=== PATIENT | male | born 1985 | race Caucasian/White ===

== ENCOUNTER 2021-03-16 18:28 | Emergency (ER) | payer MEDICAID, SELFPAY ==
[2021-03-16 18:32] VITALS: BP 150/90; PULSE 75; O2SAT 100
--- NOTE | 2021-03-16 18:40 | ED_ITS ---
HPI - Overdose General Chief Complaint: ETOH/Substance Use Stated Complaint: drug use Time Seen by Provider: 03/16/21 18:38 History of Present Illness HPI Narrative: Patient history of heroin abuse was found in the alley unresponsive overdosed on heroin. Per patient he use only 2 bags of urine which she used yesterday also but this time became unconscious was given 8 mg of Narcan by EMS now alert oriented x3. Denies any other substance abuse. Does not want to go to detox and does not need any help Related Data Allergies Allergy/AdvReac Type Severity Reaction Status Date / Time No Known Allergies Allergy Unverified 02/01/20 15:45 Review of Systems Review of Systems: Yes all other systems are reviewed and are negative [facility] Social History Social History Advance Directives: No Advance Directives Information Provided: No Physical Exam Vital Signs: Vital Signs: Last Vital Signs Temp 97.5 F 03/16/21 18:53 Pulse 79 03/16/21 18:53 Resp 14 03/16/21 18:53 BP 139/92 H 03/16/21 18:53 Pulse Ox 99 03/16/21 18:53 Body Mass Index 22.3 Appearance: Alert. Oriented X3. No acute distress. Eyes: PERRLA, No Nystagmus ENT: Pharynx normal. Oral Mucosa moist Neck: Normal inspection. Neck supple. CVS: Normal heart rate and rhythm. Pulses normal. Respiratory: No respiratory distress. Equal air entry bilateral, no wheezing/rales/rhonchi Abdomen: Soft and nontender. Bowel sounds are present, no mass palpable, no CVA tenderness Skin: Skin warm and dry. Normal skin color. Normal skin turgor. Extremities: No lower extremity edema. No calf tenderness Neuro: Oriented X 3. No motor deficit. No sensory deficit.No cerebellar signs , cranial nerves II-XII intact Course Reevaluation(s) Reevaluation #1: Patient alert oriented x3 sitting 96% room at taking p.o. fluids refused to go to detox , discharge patient home Time: 19:32 Discharge Plan Discharge Clinical Impression: Accidental heroin overdose Qualifiers: Encounter type: initial encounter Qualified Code(s): T40.1X1A - Poisoning by heroin, accidental (unintentional), initial encounter Patient Disposition: Home, Self-Care Instructions: Opioid Safety (ED) Additional Instructions: Stop using heroin and follow with detox
[2021-03-16 18:53] VITALS: BP 139/92; PULSE 79; RESP 14; TEMP 36.4; O2SAT 99; BMI 22.3
--- NOTE | 2021-03-16 19:20 | MHC.RECOVSUP ---
? Reason for consult [facility] use concern: Heroin - Overdose - Support ? Intervention: <del>o</del> <del>ATS</del> <del>bed</del> <del>search</del> <del>started/completed/in</del> <del>process</del> <del>o</del> <del>MAT</del> <del>started</del> <del>or</del> <del>to</del> <del>be</del> <del>started</del> o Community resources provided o Harm reduction discussion ? Plan: <del>o</del> <del>Referral</del> <del>to</del> <del>[facility]</del> <del>o</del> <del>Bed</del> <del>search</del> <del>in</del> <del>progress</del> <del>to</del> <del>o</del> <del>Follow</del> <del>up</del> <del>tomorrow</del> <del>o</del> <del>Patient</del> <del>awaiting</del> <del>crisis</del> <del>evaluation</del> o Patient to follow up with H after discharge ? Additional information:Patient stated that he is ok, that he on MAT, and that he had a slip.. we talk harm reduction and patient was given resources.
--- NOTE | 2021-03-16 20:24 | HO.SUDE ---
LATE ENTRY: CARE team did not meet with pt to complete SUDE prior to being discharged from the ED. This parts data writer reviewed pt's chart and consulted with refinery operator light ends recovery who spoke with him briefly. Pt is on suboxone and has been doing well overall, but sometimes will slip up and use. He declined support and resources at this time. Per chart review- pt has a history of 4 substance-use related ER visits to this hospital since 2016. During two of these visits he was in protective custody.. He has a history of both IV and IN use of opiates and cocaine as well as heavy alcohol use. He has been in detox facilities and residential treatment programs, and has been on vivitrol, methadone, and suboxone in the past. There is no history of mental health diagnoses or treatment indicated in his chart.
== END 2021-03-16 19:37 | disposition home or self-care (01) ==
PROVIDERS: Emergency Provider Internal Medicine
DX: T40.1X1A Poisoning by heroin, accidental (unintentional), initial encounter (principal); Y92.9 Unspecified place or not applicable; F11.10 Opioid abuse, uncomplicated
CPT/HCPCS: 99283

== ENCOUNTER 2022-02-04 13:48 | Emergency (ER) | payer MEDICAID, SELFPAY ==
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
[2022-02-04 13:54] VITALS: BP 147/90; PULSE 94; RESP 16; TEMP 36.6; O2SAT 94; BMI 25.8
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
[2022-02-04] MEDS: Ondansetron ODT 4 MG TAB.RAPDIS TRANSLINGU (14:33)
[2022-02-04 14:34] VITALS: RESP 16
[2022-02-04] MEDS: Morphine Sulfate 4 MG/ML CARTRIDGE IM (14:34)
[2022-02-04 16:27] VITALS: RESP 16
[2022-02-04] MEDS: HYDROmorphone HCl 1 MG/ML SYRINGE IM (16:27)
[2022-02-04 16:40] LABS: MANUAL DIFF FLAG NO
[2022-02-04 16:42] LABS: Basophils Percent Auto 0.4 % (0-2); Eosinophils Absolute Auto 0.1 X10*3/uL (0.0-0.4); Eosinophils Percent Auto 1.3 % (0-4); Hematocrit 43.3 % (42.0-52.0); Hemoglobin 13.6 g/dl (14.0-18.0); Imm Gran Abs Auto 0.01 X10*3/uL (0.00-0.03); Imm Gran Pct Auto 0.1 % (0.0-0.4); Lymphocytes Absolute Auto 1.4 X10*3/uL (1.2-4.9); Lymphocytes Percent Auto 17.4 % (20-40); Mean Corpuscular HGB Conc 31.4 g/dl (31.0-36.0); Mean Corpuscular Hemoglobin 28.4 pg (27.0-33.0); Mean Corpuscular Volume 90.4 fL (80.0-98.0); Mean Platelet Volume 11.2 fL (9.4-12.4); Monocytes Absolute Auto 0.5 X10*3/uL (0.1-1.2); Monocytes Percent Auto 6.4 % (2-11); Neutrophils Absolute Auto 5.8 x10*3/uL (2.0-8.3); Neutrophils Percent Auto 74.4 % (45-73); Platelet Count 241 X10*3/uL (160-400); Red Blood Count 4.79 X10*6/uL (4.60-5.80); Red Cell Distribution Width 12.5 % (11.0-16.0); White Blood Count 7.8 X10*3/uL (4.8-10.8)
[2022-02-04 16:50] LABS: INTERNATIONAL NORM RATIO 1.2 (0.9-1.1); Prothrombin Time 13.9 SEC (10.0-13.1)
[2022-02-04] MEDS: Diphth,Pertus(ACell),Tet Adult 0.5 ML SYRINGE IM (16:50)
[2022-02-04] MEDS: 0.9 % Sodium Chloride 1,000 ML 999 ML IVCONT (16:51)
[2022-02-04] MEDS: Piperacillin Sodium/Tazobactam 3.375 GM in 0.9 % Sodium Chloride 50 ML IV (16:53)
[2022-02-04 17:01] LABS: Alanine Aminotransferase 30 U/L (0-40); Albumin Level 4.4 g/dL (3.5-5.0); Alkaline Phosphatase 140 U/L (39-117); Anion Gap 16 (12-20); Aspartate Amino Transferase 30 U/L (5-37); Bilirubin Total 0.4 mg/dL (0.0-1.0); Blood Urea Nitrogen 12 mg/dL (9-16); Calcium 9.5 mg/dL (8.4-10.2); Carbon Dioxide 28 mmol/L (22-29); Chloride 101 mmol/L (96-108); Creatinine Clr Calc Pharmacy 102.3; Estimated Glomerular Filt Rate > 60; Glucose Random 101 mg/dL (60-115); Potassium 3.6 mmol/L (3.3-5.1); Sodium 141 mmol/L (135-145); Total Protein 8.4 g/dL (6.5-8.0)
[2022-02-04 17:07] LABS: COVID-19 Test Negative (Negative); IDNOW Serial# 55D5AD1C
[2022-02-04 17:27] VITALS: BP 159/91; PULSE 61; RESP 18
[2022-02-04 17:30] VITALS: BP 159/91; PULSE 61; RESP 18; O2SAT 98
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
--- NOTE | 2022-02-04 18:05 | PC.NURSE ---
1730: ASSUMED CARE OF PATIENT PT AWAKE, ALERT AND ORIENTED X 3. SKIN WARM AND DRY RESP EVEN, EASY, UNLABORED. MANAGING SECRETIONS. IV ABX COMPLETED. PLAN IS FOR TRANSFER TO [facility]. PT AGREEABLE TO PLAN.
--- NOTE | 2022-02-04 18:38 | PC.NURSE ---
REPORT TO [facility]. [facility] HERE FOR TRANSPORT.
== END 2022-02-04 18:40 | disposition short-term general hospital (02) ==
PROVIDERS: Physician Assistant Medical; Emergency Provider Emergency Medicine; PCP Nurse Practitioner Family
DX: S02.652A Fracture of angle of left mandible, initial encounter for closed fracture (principal); S02.651A Fracture of angle of right mandible, initial encounter for closed fracture; Y04.2XXA Assault by strike against or bumped into by another person, initial encounter; F11.90 Opioid use, unspecified, uncomplicated; Z20.822 Contact with and (suspected) exposure to COVID-19; Y93.89 Activity, other specified; Y92.9 Unspecified place or not applicable; Y99.9 Unspecified external cause status; M27.40 Unspecified cyst of jaw
CPT/HCPCS: 36415; 70450; 70486; 72125; 80053; 83735; 85025; 85610; 87040; 87147; 87205; 87635; 90471; 90715; 96361; 96372; 96374; 99284; 99285; J1170; J2270; J2543

== ENCOUNTER 2022-07-17 17:40 | Inpatient (IN) | payer MEDICAID, SELFPAY ==
--- NOTE | ~2022-07-17 | XR_ITS ---
EXAMINATION: XR ANKLE, LEFT CLINICAL INFORMATION: Cellulitis, possibly septic joint. COMPARISON: None TECHNIQUE: AP, lateral, and mortise views of the left ankle. FINDINGS: Diffuse soft tissue swelling/thickening. No unexpected radiopaque foreign bodies. No cortical disruption or erosive changes to suspect osteomyelitis. No acute fractures or malalignment. XR/XR ankle LT min 3V IMPRESSION: 1. Diffuse soft tissue swelling. Correlation for infection and septic joint should be obtained with fluid aspiration. 2. No acute osseous abnormalities. 3. No radiographic evidence of osteomyelitis. However, early osteomyelitis can be radiographically occult, and if indicated correlation with an MR could be obtained.
[2022-07-17 17:57] VITALS: BP 171/107; PULSE 106; RESP 14; O2SAT 96; BMI 25.1
--- NOTE | 2022-07-17 18:12 | ED.GENADULT ---
HPI - General Adult General Chief complaint: Extremity Injury, Lower Stated complaint: L ankle pain Time Seen by Provider: 07/17/22 18:11 Source: patient Mode of arrival: ambulatory Limitations: no limitations History of Present Illness HPI narrative: Patient is a 37 year old assigned male at with a history of IV drug use presenting to the emergency department today with left ankle pain. Patient states that his left ankle has been bothering him for the last 3 days. Patient states that he has been homeless for awhile and has been walking a lot in wet shoes and socks. Patient denies any dizziness, lightheadedness, abdominal pain, nausea, vomiting, fever, chills, blurry vision, double vision, loss of vision, chest pain, difficulty breathing, shortness of breath, back pain, night sweats, pain with urination, increased urinary frequency, increased urinary urgency, blood in his urine or stool, syncope or a near syncopal episode, recent trauma or falls, bowel incontinence, bladder incontinence, bowel retention, bladder retention, or any other complaints at this time. Onset (ago): day(s) (3) Location: left and lower extremity Severity: moderate Severity scale (1-10): 4 Pain Consistency: constant Relieving factors: none Exacerbating factors: movement Associated symptoms: denies other symptoms Treatments prior to arrival: none Related Data Home Medications Medication Instructions Recorded Confirmed No Known Home Meds 07/17/22 07/17/22 Allergies Allergy/AdvReac Type Severity Reaction Status Date / Time No Known Allergies Allergy Verified 02/04/22 13:56 Review of Systems Constitutional: Constitutional: Reports no additional constitutional complaints, Denies chills, Denies fever(s) and Denies night sweats Eyes: Eyes: Reports no additional eye complaints, Denies blurry vision, Denies change in vision, Denies diplopia, Denies eye discharge, Denies loss of vision and Denies eye pain ENT: Denies dizziness Cardiovascular: Cardiovascular: Reports no additional cardiovascular complaints, Denies chest pain, Denies lightheadedness, Denies Loss of Consciousness and Denies dyspnea Respiratory: Respiratory: Reports no additional respiratory complaints and Denies dyspnea Gastrointestinal: Gastrointestinal: Reports no additional gastrointestinal complaints, Denies abdominal pain, Denies melena, Denies hematochezia, Denies change in bowel habits and Denies change in stool character Genitourinary: Genitourinary: Reports no additional male genitourinary complaints, Denies hematuria, Denies oliguria, Denies difficulty urinating, Denies dysuria, Denies urinary frequency, Denies urinary hesitancy, Denies urinary incontinence and Denies urinary urgency Musculoskeletal: Musculoskeletal: Reports no additional musculoskeletal complaints, Denies numbness and Denies tingling Comments: left ankle pain Neurologic: Denies dizziness, Denies loss of vision, Denies numbness and Denies tingling Psychiatric: Psychiatric: Reports no additional psychiatric complaints Endocrine: Endocrine: Reports no additional endocrine complaints Hematologic/Lymphatic: Hematologic/Lymphatic: Reports no additional hematologic/lymphatic complaints Allergic/Immunologic: Allergic/Immunologic: Reports no additional allergic/immunologic complaints PMF Past Medical History Attestation statement: The following information was validated with the patient. Source: old records reviewed and nursing notes reviewed Social History Social History Smoked in Last 30 Days: No Use of substances other than those prescribed or required for medical reasons: Yes Substance Use Type: Heroin Substance Use Frequency: Daily Last Used Substance: Hours (ago) Advance Directives: No Advance Directives Information Provided: No Physical Exam ED Vital Signs: Vital Signs - 24 hr 07/17/22 17:57 07/17/22 18:57 07/17/22 20:02 Temperature 98.6 F Pulse Rate 106 H 103 H 101 H Respiratory Rate 14 19 16 Blood Pressure 171/107 H 136/81 136/86 Pulse Oximetry 96 96 97 Oxygen Delivery Method Room Air Room Air Room Air BMI result Body Mass Index 25.1 Const General: cooperative, no acute distress, alert and awake Nutritional Appearance: well nourished Orientation/consciousness: patient oriented x3 Limitations: no limitations [facility] Head: Yes normal to inspection and Yes atraumatic Ears: hearing grossly normal bilaterally and external ears normal General nose exam: Normal external nose present, no nasal discharge noted and no epistaxis Face and sinus: Yes normal facial exam, No abrasion and No laceration Mouth: Normal oral and palatal mucosa present, no drooling and no muffled voice Eyes General: appearance normal, both eyes and all related structures Periorbital: periorbital findings normal Eyelids: Yes eyelids normal Conjunctivae: conjunctivae normal Pupils: Equal, round and reactive pupils present EOM: EOMs intact bilaterally Neck Neck: Yes normal visual inspection, Yes full ROM and Yes no lymphadenopathy Chest Chest palpation & inspection: normal inspection of the chest Resp Effort & Inspection: normal respiratory effort and able to speak in complete sentences Auscultation: clear to auscultation bilaterally Cardio Rate: tachycardic Rhythm: regular rhythm GI Inspection: Yes normal to inspection Neuro General: patient oriented x3 and moves all extremities Cranial nerves: Yes Equal, round and reactive pupils present Cognition (Neuro): normal cognition Motor exam (neuro): 5/5 motor strength present throughout Sensory Exam: Normal double simultaneous stimulation for sensation Coordination: [id number] test normal Extrem Other: General: Yes full ROM (severe pain with movement of the left foot at the ankle joint) and Yes capillary refill normal Right lower extremity: full ROM Psych Appearance: grossly normal Mental Status: mental status grossly normal Affect: normal affect Attitude: cooperative Thought process: Normal thought process present Thought content: Normal thought content present Insight: Good insight present (Psych) Medications Administered Generic Name Dose Route Start Last Admin Trade Name Freq PRN Reason Stop Dose Admin Vancomycin HCl 2,000 mg in 520 mls @ 260 mls/hr 07/17/22 18:30 07/17/22 19:29 Vancomycin/Ns IV 07/17/22 20:29 260 mls/hr ONCE ONE Administration Discontinued Medications Generic Name Dose Route Start Last Admin Trade Name Freq PRN Reason Stop Dose Admin Sodium Chloride 2,449.41 mls @ 2,449.41 mls/hr 07/17/22 18:15 07/17/22 19:52 Ns 30 ml/kg infuse over 1 hr (2449.41 ml) 07/17/22 19:14 Infused IV Infusion .Q1H STA Piperacillin Sod/Tazobactam 50 mls @ 100 mls/hr 07/17/22 18:15 07/17/22 19:14 Sod 3.375 gm/ Sodium Chloride IV 07/17/22 18:44 Infused ONCE ONE Infusion Lorazepam 2 mg 07/17/22 18:15 07/17/22 18:44 Lorazepam 2 Mg/Ml Vial IVPUSH 07/17/22 18:16 2 mg ONCE ONE Administration Medical Decision Making Medical Decision Making MDM Narrative: Patient is a 37 year old assigned male at with a history of IV drug use presenting to the emergency department today with left ankle pain. Patient's physical exam was as documented earlier in this chart. Patient's blood work showed an elevated ESR of 19 and an elevated CRP of 14.86. Patient's left ankle x-ray showed no acute fracture. Based on the patient's physical examination, I have concerns for bilateral trench foot and a possible septic left ankle joint. I spoke to orthopedics who agreed to consult on the case. I spoke to general surgery who stated they would consult on the case and make the patient NPO starting at midnight tonight in case any procedure needed done tomorrow. I spoke to the hospitalist who agreed to admission. Patient was given IV Zosyn and IV Vancomycin. Patient's clinical presentation is not consistent with sepsis or septic shock (@1900). . I explained my physical exam findings as well as all test results to the patient. I answered all questions asked by the patient. Patient verbalized agreement and understanding with this treatment plan and admission. Differential Diagnosis Differential Diagnoses: The differential diagnosis associated with the presentation includes bilateral trench foot, septic joint (left ankle) Consult Healthcare Provider Management of the patient was discussed with: Hospitalist (agreed to admission) and It Desktop Support Technician (spoke to orthopedics and general surgery as noted in the MDM portion of this chart) Lab Data [facility] Lab Attestation statement: I reviewed the patient's lab results. 07/17/22 18:32 07/17/22 18:32 Labs: Lab Results 07/17/22 07/17/22 07/17/22 Range/Units 18:32 18:32 18:32 WBC 8.5 (4.8-10.8) X10*3/uL RBC 4.14 L (4.60-5.80) X10*6/uL Hgb 12.1 L (14.0-18.0) g/dl Hct 34.9 L (42.0-52.0) % MCV 84.3 (80.0-98.0) fL MCH 29.2 (27.0-33.0) pg MCHC 34.7 (31.0-36.0) g/dl RDW 12.9 (11.0-16.0) % Plt Count 215 (160-400) X10*3/uL MPV 10.7 (9.4-12.4) fL Immature Gran % (Auto) 0.6 H (0.0-0.4) % Neut % (Auto) 62.6 (45-73) % Lymph % (Auto) 18.1 L (20-40) % [place] % (Auto) 16.3 H (2-11) % Eos % (Auto) 1.9 (0-4) % Baso % (Auto) 0.5 (0-2) % Lymph # (Auto) 1.5 (1.2-4.9) X10*3/uL [place] # (Auto) 1.4 H (0.1-1.2) X10*3/uL Eos # (Auto) 0.2 (0.0-0.4) X10*3/uL Baso # (Auto) 0.0 (0.0-0.2) X10*3/uL Abs Immat Gran (auto) 0.05 H (0.00-0.03) X10*3/uL Absolute Neuts (auto) 5.3 (2.0-8.3) x10*3/uL Absolute Nucleated RBC 0.000 (0.0-0.012) X10*3/uL Nucleated RBC % (auto) 0.0 (0.0-0.2) /100WBC ESR 19 H (0-15) MM/HR Sodium 138 (135-145) mmol/L Potassium 3.5 (3.3-5.1) mmol/L Chloride 100 (96-108) mmol/L Carbon Dioxide 29 (22-29) mmol/L Anion Gap 13 (12-20) BUN 12 (9-16) mg/dL Creatinine 0.86 (0.5-1.4) mg/dL Estim Creat Clear Calc 127.6 Estimated GFR > 60 Random Glucose 108 (60-115) mg/dL Lactic Acid (0.5-2.0) mmol/L Calcium 9.0 (8.4-10.2) mg/dL Total Bilirubin 0.8 (0.0-1.0) mg/dL AST 96 H (5-37) U/L ALT 61 H (0-40) U/L Alkaline Phosphatase 108 (39-117) U/L C-Reactive Protein 14.86 H (< or = 0.50) mg/dL Total Protein 7.2 (6.5-8.0) g/dL Albumin 3.9 (3.5-5.0) g/dL COVID-19 (NATY) (Negative) COVID-19 Clin Com 07/17/22 07/17/22 Range/Units 18:32 19:04 WBC (4.8-10.8) X10*3/uL RBC (4.60-5.80) X10*6/uL Hgb (14.0-18.0) g/dl Hct (42.0-52.0) % MCV (80.0-98.0) fL MCH (27.0-33.0) pg MCHC (31.0-36.0) g/dl RDW (11.0-16.0) % Plt Count (160-400) X10*3/uL MPV (9.4-12.4) fL Immature Gran % (Auto) (0.0-0.4) % Neut % (Auto) (45-73) % Lymph % (Auto) (20-40) % [place] % (Auto) (2-11) % Eos % (Auto) (0-4) % Baso % (Auto) (0-2) % Lymph # (Auto) (1.2-4.9) X10*3/uL [place] # (Auto) (0.1-1.2) X10*3/uL Eos # (Auto) (0.0-0.4) X10*3/uL Baso # (Auto) (0.0-0.2) X10*3/uL Abs Immat Gran (auto) (0.00-0.03) X10*3/uL Absolute Neuts (auto) (2.0-8.3) x10*3/uL Absolute Nucleated RBC (0.0-0.012) X10*3/uL Nucleated RBC % (auto) (0.0-0.2) /100WBC ESR (0-15) MM/HR Sodium (135-145) mmol/L Potassium (3.3-5.1) mmol/L Chloride (96-108) mmol/L Carbon Dioxide (22-29) mmol/L Anion Gap (12-20) BUN (9-16) mg/dL Creatinine (0.5-1.4) mg/dL Estim Creat Clear Calc Estimated GFR Random Glucose (60-115) mg/dL Lactic Acid 1.1 (0.5-2.0) mmol/L Calcium (8.4-10.2) mg/dL Total Bilirubin (0.0-1.0) mg/dL AST (5-37) U/L ALT (0-40) U/L Alkaline Phosphatase (39-117) U/L C-Reactive Protein (< or = 0.50) mg/dL Total Protein (6.5-8.0) g/dL Albumin (3.5-5.0) g/dL COVID-19 (NATY) Negative (Negative) COVID-19 Clin Com See Note Independent Interpretation I performed an independent interpretation of an: Plain X-Ray Interpretation: My interpretation is in agreement with the radiologist's impression of this imaging study. EXAMINATION: XR ANKLE, LEFT CLINICAL INFORMATION: Cellulitis, possibly septic joint.? COMPARISON: None? TECHNIQUE: AP, lateral, and mortise views of the left ankle. FINDINGS: Diffuse soft tissue swelling/thickening. No unexpected radiopaque foreign bodies. No cortical disruption or erosive changes to suspect osteomyelitis. No acute fractures or malalignment.? XR/XR ankle LT min 3V IMPRESSION: 1.? Diffuse soft tissue swelling. Correlation for infection and septic joint should be obtained with fluid aspiration. 2.? No acute osseous abnormalities. 3.? No radiographic evidence of osteomyelitis. However, early osteomyelitis can be radiographically occult, and if indicated correlation with an MR could be obtained. Dictated By: Amisha Knox Signed By: Electronically signed by Amisha?Lisette 07/17/221931 Chronic Conditions Patient?s care impacted by: Other (IV drug use) Social Determinants Patient?s care significantly limited by Social Determinants of Health including: Inadequate housing (patient was walking around in wet shoes and socks causing bilateral trench foot) Critical Care Time Critical Care Time Critical Care Time: Yes Total Critical Care Time: 45 Attestation: I spent 45 minutes of Critical Care Time with this patient. This does not include time spent on separately reported billable procedures. Discharge Plan Discharge Clinical Impression: Trench feet, Septic joint, Cellulitis Patient Disposition: Admitted As Inpatient Prescriptions: No Action No Known Home Meds Print Language: Croatian
[2022-07-17 18:43] LABS: MANUAL DIFF FLAG NO
[2022-07-17] MEDS: LORazepam 2 MG/ML VIAL IVPUSH (18:44)
[2022-07-17] MEDS: Piperacillin Sodium/Tazobactam 3.375 GM in 0.9 % Sodium Chloride 50 ML IV (18:44)
[2022-07-17] MEDS: 0.9 % Sodium Chloride 2,449.41 ML 2449.41 ML IV (18:45)
[2022-07-17 18:47] LABS: Basophils Percent Auto 0.5 % (0-2); Eosinophils Absolute Auto 0.2 X10*3/uL (0.0-0.4); Eosinophils Percent Auto 1.9 % (0-4); Hematocrit 34.9 % (42.0-52.0); Hemoglobin 12.1 g/dl (14.0-18.0); Imm Gran Abs Auto 0.05 X10*3/uL (0.00-0.03); Imm Gran Pct Auto 0.6 % (0.0-0.4); Lymphocytes Absolute Auto 1.5 X10*3/uL (1.2-4.9); Lymphocytes Percent Auto 18.1 % (20-40); Mean Corpuscular HGB Conc 34.7 g/dl (31.0-36.0); Mean Corpuscular Hemoglobin 29.2 pg (27.0-33.0); Mean Corpuscular Volume 84.3 fL (80.0-98.0); Mean Platelet Volume 10.7 fL (9.4-12.4); Monocytes Absolute Auto 1.4 X10*3/uL (0.1-1.2); Monocytes Percent Auto 16.3 % (2-11); Neutrophils Absolute Auto 5.3 x10*3/uL (2.0-8.3); Neutrophils Percent Auto 62.6 % (45-73); Platelet Count 215 X10*3/uL (160-400); Red Blood Count 4.14 X10*6/uL (4.60-5.80); Red Cell Distribution Width 12.9 % (11.0-16.0); White Blood Count 8.5 X10*3/uL (4.8-10.8)
[2022-07-17 18:54] LABS: Lactic Acid 1.1 mmol/L (0.5-2.0)
[2022-07-17 18:57] VITALS: BP 136/81; PULSE 103; RESP 19; TEMP 37; O2SAT 96
[2022-07-17 19:08] LABS: Alanine Aminotransferase 61 U/L (0-40); Albumin Level 3.9 g/dL (3.5-5.0); Alkaline Phosphatase 108 U/L (39-117); Anion Gap 13 (12-20); Aspartate Amino Transferase 96 U/L (5-37); Bilirubin Total 0.8 mg/dL (0.0-1.0); Blood Urea Nitrogen 12 mg/dL (9-16); C Reactive Protein 14.86 mg/dL (< or = 0.50); Carbon Dioxide 29 mmol/L (22-29); Chloride 100 mmol/L (96-108); Creatinine Clr Calc Pharmacy 127.6; Estimated Glomerular Filt Rate > 60; Glucose Random 108 mg/dL (60-115); Potassium 3.5 mmol/L (3.3-5.1); Sodium 138 mmol/L (135-145); Total Protein 7.2 g/dL (6.5-8.0)
--- NOTE | 2022-07-17 19:23 | PHA.MEDREC ---
Pharmacy Consult ? Medication Reconciliation Pharmacy has completed the medication reconciliation. No meds per PA who spoke directly with pt
--- NOTE | 2022-07-17 19:24 | PC.NURSE ---
Patient ripping out IV, new IV placed and fluids continued. Security in at bedside to search belongings. Patient continues to be restless, not easily redirected.
[2022-07-17 19:28] LABS: COVID-19 Test Negative (Negative); IDNOW Serial# 16C4AD1C
[2022-07-17 19:38] LABS: Erythrocyte Sedimentation Rate 19 MM/HR (0-15)
[2022-07-17 20:02] VITALS: BP 136/86; PULSE 101; RESP 16; O2SAT 97
--- NOTE | 2022-07-17 20:22 | P.HPHOSP_ITS ---
History of Present Illness Date of Service: 07/17/22 Chief Complaint: Foot infection This is a 37-year-old with pertinent history of IV substance use disorder presents to the emergency department for evaluation of left ankle pain. Patient received Ativan in the ER and at the time of my evaluation patient is only responding to painful stimulus. Unable to obtain any history from the patient. History obtained from chart review and ER provider. The left ankle pain apparently started 3 days ago. Patient has been homeless and walking in wet shoes and socks. Unable to obtain review of systems. In the emergency department, imaging with diffuse soft tissue swelling. Orthopedic surgery and General surgery consult from the ER. Review of Systems Review of Systems: Yes Unobtainable due to mental status PMFSH Medical History Substance use disorder Pertinent family history: Unable to obtain Social History Smoked in Last 30 Days: No Use of substances other than those prescribed or required for medical reasons: Yes Substance Use Type: Heroin Substance Use Frequency: Daily Last Used Substance: Hours (ago) Advance Directives: No Advance Directives Information Provided: No Meds Allergies Allergy/AdvReac Type Severity Reaction Status Date / Time No Known Allergies Allergy Verified 02/04/22 13:56 Active Medications: Current Medications Acetaminophen (Acetaminophen 325 Mg Tablet) 650 mg PO Q6H PRN PRN Reason: Pain, Mild (Pain Scale 1-3) Vancomycin HCl (Vancomycin/Ns) 2,000 mg in 520 mls @ 260 mls/hr IV ONCE ONE Stop: 07/17/22 20:29 Last Admin: 07/17/22 19:29 Dose: 260 mls/hr Melatonin (Melatonin 3 Mg Tablet) 6 mg PO BEDTIME PRN PRN Reason: Insomnia Ondansetron HCl (Ondansetron Hcl 4 Mg/2 Ml Vial) 4 mg IVPUSH Q8H PRN PRN Reason: Nausea and Vomiting Pharmacy Consult (Consult Rx Perform Med Rec) 1 each MISCELLANE ONCE PRN PRN Reason: Consult order Sodium Chloride (0.9 % Sodium Chloride Flush 3 Ml Syringe) 3 ml IVFLUSH [facility] Home Medications Medication Instructions Recorded Confirmed Last Taken Type No Known Home Meds 07/17/22 07/17/22 Unknown History Physical Exam Vital Signs and Narrative: Vital Signs: Last Vital Signs Temp 98.6 F 07/17/22 18:57 Pulse 101 H 07/17/22 20:02 Resp 16 07/17/22 20:02 BP 136/86 07/17/22 20:02 Pulse Ox 97 07/17/22 20:02 O2 Del Method 07/17/22 20:02 BMI result Body Mass Index 25.1 Middle-aged male lying in bed in no distress Neck supple, no JVD Regular rate and rhythm, S1-S2 heard Regular breath sounds bilaterally, no wheezing or crackles appreciated Abdomen soft nontender, no guarding, no rigidity Patient is drowsy and only responding to painful stimulus Musculoskeletal: Left swollen ankle with erythema Results Labs 07/17/22 18:32 07/17/22 18:32 Labs: Laboratory Results - last 24 hr 07/17/22 07/17/22 07/17/22 18:32 18:32 18:32 MCV 84.3 MCH 29.2 MCHC 34.7 RDW 12.9 Plt Count 215 MPV 10.7 Immature Gran % (Auto) 0.6 H Neut % (Auto) 62.6 Lymph % (Auto) 18.1 L [place] % (Auto) 16.3 H Eos % (Auto) 1.9 Baso % (Auto) 0.5 Lymph # (Auto) 1.5 [place] # (Auto) 1.4 H Eos # (Auto) 0.2 Baso # (Auto) 0.0 Abs Immat Gran (auto) 0.05 H Absolute Neuts (auto) 5.3 Absolute Nucleated RBC 0.000 Nucleated RBC % (auto) 0.0 ESR 19 H Anion Gap 13 Estim Creat Clear Calc 127.6 Estimated GFR > 60 Random Glucose 108 Lactic Acid Calcium 9.0 Total Bilirubin 0.8 AST 96 H ALT 61 H Alkaline Phosphatase 108 C-Reactive Protein 14.86 H Total Protein 7.2 Albumin 3.9 COVID-19 (NATY) COVID-19 Clin Com 07/17/22 07/17/22 18:32 19:04 MCV MCH MCHC RDW Plt Count MPV Immature Gran % (Auto) Neut % (Auto) Lymph % (Auto) [place] % (Auto) Eos % (Auto) Baso % (Auto) Lymph # (Auto) [place] # (Auto) Eos # (Auto) Baso # (Auto) Abs Immat Gran (auto) Absolute Neuts (auto) Absolute Nucleated RBC Nucleated RBC % (auto) ESR Anion Gap Estim Creat Clear Calc Estimated GFR Random Glucose Lactic Acid 1.1 Calcium Total Bilirubin AST ALT Alkaline Phosphatase C-Reactive Protein Total Protein Albumin COVID-19 (NATY) Negative COVID-19 Clin Com See Note Imaging Radiologist's Impressions: Impressions Ankle X-Ray 07/17/22 18:44 IMPRESSION: 1. Diffuse soft tissue swelling. Correlation for infection and septic joint should be obtained with fluid aspiration. 2. No acute osseous abnormalities. 3. No radiographic evidence of osteomyelitis. However, early osteomyelitis can be radiographically occult, and if indicated correlation with an MR could be obtained. Assessment and Plan (1) Cellulitis: Status: Acute Plan This is a 37-year-old with pertinent history of IV substance use disorder presents to the emergency department for evaluation of left ankle pain. #. Left ankle cellulitis: Continue empiric IV antibiotics for extensive cellulitis. Orthopedic surgery consulted from the ER for possible joint aspirat ion to rule out septic joint. Blood cultures and lactic acid obtained. #. Substance use disorder: UDS pending. Was given methadone in the ER #. Acute toxic encephalopathy in the setting of above #. Homelessness: Consulting Personnel Monitor DVT prophylaxis: With Lovenox until surgical evaluation NPO until mentation improves Full code Admit as inpatient and will require two night minimum hospital stay for IV antibiotics Time Spent With Patient Time: Total time managing care of this patient today ____ minutes. Quality Stroke Does the patient have a stroke diagnosis?: No VTE Prior VTE?: No VTE Risk Level:: Medical - moderate - high VTE Device Contraindication: Treatment Not Indicated VTE Drug Contraindication: Treatment Not Indicated
[2022-07-17 20:24] VITALS: BP 125/62; PULSE 99; RESP 20; TEMP 37.3; O2SAT 93
--- NOTE | 2022-07-17 20:26 | MHC.EDTECH ---
PT bed linen changed. Pt temp checked rectal 99.1 RN Nithya aware. Pt given sheet and call hill in reach
--- NOTE | 2022-07-17 21:32 | P.CONOP_ITS ---
History of Present Illness HPI Consult date: 07/17/22 Chief complaint: Foot infection Narrative: Mr. Azar is a 37 year old male with a past medical history significant for IV drug use who presented to the emergency department today with left ankle pain for the past three days. He reports that he has been walking on the ankle although painful. He reported to the ED providers that he is homeless and has been walking frequently with wet shoes and socks leaving his feet more painful. He is currently laying on the stretcher moving all extremities and is hesitant to answer questions. Some information in the HPI was obtained from the ED notes. Appears to currently be under the influence of some substance. Review of Systems Review of Systems: Yes all other systems are reviewed and are negative PMFSH Past Medical History Medical History Substance use disorder Social History Social History Patient Tobacco Use Status: Never used Tobacco Smoked in Last 30 Days: No Use of substances other than those prescribed or required for medical reasons: Yes Substance Use Type: Heroin Substance Use Frequency: Daily Last Used Substance: Hours (ago) Advance Directives: No Advance Directives Information Provided: No Nutrition Risks: No Nutritional Risk Meds Allergies Allergy/AdvReac Type Severity Reaction Status Date / Time No Known Allergies Allergy Verified 02/04/22 13:56 Active Medications: Current Medications Acetaminophen (Acetaminophen 325 Mg Tablet) 650 mg PO Q6H PRN PRN Reason: Pain, Mild (Pain Scale 1-3) Cefepime HCl 2 gm/ Sodium (Chloride) 50 mls @ 100 mls/hr IV Q8H [facility] Vancomycin HCl 1,250 mg/ (Sodium Chloride) 250 mls @ 166.667 mls/hr IV Q12H [facility] Melatonin (Melatonin 3 Mg Tablet) 6 mg PO BEDTIME PRN PRN Reason: Insomnia Ondansetron HCl (Ondansetron Hcl 4 Mg/2 Ml Vial) 4 mg IVPUSH Q8H PRN PRN Reason: Nausea and Vomiting Pharmacy Consult (Consult Rx Perform Med Rec) 1 each MISCELLANE ONCE PRN PRN Reason: Consult order Pharmacy Consult (Consult Rx Vancomycin Dosing) 1 each MISCELLANE DAILY PRN PRN Reason: Consult order Sodium Chloride (0.9 % Sodium Chloride Flush 3 Ml Syringe) 3 ml IVFLUSH QSHIFT [facility] Home Medications Medication Instructions Recorded Confirmed Last Taken Type No Known Home Meds 07/17/22 07/17/22 Unknown History Physical Exam Vital Signs: Vital Signs: Last Vital Signs Temp 99.1 F 07/17/22 20:24 Pulse 99 07/17/22 20:24 Resp 20 07/17/22 20:24 BP 125/62 07/17/22 20:24 Pulse Ox 93 07/17/22 20:24 O2 Del Method 07/17/22 20:24 BMI result Body Mass Index 25.1 Const: General: cooperative, healthy appearing and no acute distress Resp: Effort & Inspection: normal respiratory effort and able to speak in complete sentences Cardio: Rate: regular rate Peripheral pulses: Peripheral pulses 2+ throughout GI: Palpation (GI): Soft to palpation Skin: Lesions: no lesions Rashes: no rashes Extrem: Other: Left ankle cellulitis noted. Patient is able to tolerate palation to all anatomical landmarks without pain. He is actively dorsi and plantarflexing in bed without any apparent reaction to pain. Pedla pulse intact. Sensation reportedly intact. No evidence of septic joint. Results Labs 07/17/22 18:32 07/17/22 18:32 Labs: Abnormal lab results 07/17/22 07/17/22 07/17/22 Range/Units 18:32 18:32 18:32 RBC 4.14 L (4.60-5.80) X10*6/uL Hgb 12.1 L (14.0-18.0) g/dl Hct 34.9 L (42.0-52.0) % Immature Gran % (Auto) 0.6 H (0.0-0.4) % Lymph % (Auto) 18.1 L (20-40) % [place] % (Auto) 16.3 H (2-11) % [place] # (Auto) 1.4 H (0.1-1.2) X10*3/uL Abs Immat Gran (auto) 0.05 H (0.00-0.03) X10*3/uL ESR 19 H (0-15) MM/HR AST 96 H (5-37) U/L ALT 61 H (0-40) U/L C-Reactive Protein 14.86 H (< or = 0.50) mg/dL H & H 03/03/23 Range/Units 18:32 Hgb 12.1 L (14.0-18.0) g/dl Hct 34.9 L (42.0-52.0) % All other labs normal. Assessment and Plan (1) Substance use disorder: Status: Acute (2) Trench feet: Status: Acute (3) Cellulitis: Status: Acute -Patient is able to dorsifelx and planarflex bilaterally without reported pain. No tenderness to palpation of all anatomical landmarks of the ankle. Patient reports weightbearing prior to his arrival. No evidence of septic joint at this time. -Recommendations: -IV abx for cellulitis -Gentle ROM -No additional orthopedic intervention needed at this time Time Spent With Patient Time: Total time managing care of this patient today ____ minutes. Procedures Date of Service Date of Service: 07/17/22
[2022-07-17] MEDS: cefEPime HCl 2 GM in 0.9 % Sodium Chloride 50 ML IV (21:40)
[2022-07-17] MEDS: methADONE HCl 20 MG/2 ML ORAL.CONC PO (21:40)
--- NOTE | 2022-07-17 22:36 | MHC.CM.PN ---
Attempted to meet with patient. Pt sleeping soundly. Spoke with Dr. Fernandes about need for Addiction medicine consult. Pt actively using Heroin. Dr. Fernandes states he is waiting for Tox screen and then will order. CM will need to meet with patient when awake.
--- NOTE | 2022-07-17 23:21 | PC.NURSE ---
pt continues to sleep at this time, remains normal sinus 80s on monitor, awoke to take methadone and fell right back asleep. pt has been repositioned and changed. All abx have been infused at this time
[2022-07-18 06:07] VITALS: BP 134/82; PULSE 93; RESP 16; TEMP 36.8; O2SAT 94
[2022-07-18] MEDS: cefEPime HCl 2 GM in 0.9 % Sodium Chloride 50 ML IV ×3 (06:12→20:09)
[2022-07-18 06:29] LABS: MANUAL DIFF FLAG NO
[2022-07-18 06:36] LABS: Basophils Absolute Auto 0.1 X10*3/uL (0.0-0.2); Basophils Percent Auto 0.8 % (0-2); Eosinophils Absolute Auto 0.3 X10*3/uL (0.0-0.4); Eosinophils Percent Auto 4.3 % (0-4); Hematocrit 34.2 % (42.0-52.0); Hemoglobin 11.6 g/dl (14.0-18.0); Imm Gran Abs Auto 0.04 X10*3/uL (0.00-0.03); Imm Gran Pct Auto 0.6 % (0.0-0.4); Lymphocytes Absolute Auto 1.5 X10*3/uL (1.2-4.9); Lymphocytes Percent Auto 23.1 % (20-40); Mean Corpuscular HGB Conc 33.9 g/dl (31.0-36.0); Mean Corpuscular Hemoglobin 29.4 pg (27.0-33.0); Mean Corpuscular Volume 86.6 fL (80.0-98.0); Mean Platelet Volume 11.1 fL (9.4-12.4); Monocytes Absolute Auto 0.9 X10*3/uL (0.1-1.2); Monocytes Percent Auto 13.6 % (2-11); Neutrophils Absolute Auto 3.7 x10*3/uL (2.0-8.3); Neutrophils Percent Auto 57.6 % (45-73); Platelet Count 201 X10*3/uL (160-400); Red Blood Count 3.95 X10*6/uL (4.60-5.80); White Blood Count 6.5 X10*3/uL (4.8-10.8)
[2022-07-18 06:47] LABS: Anion Gap 13 (12-20); Blood Urea Nitrogen 9 mg/dL (9-16); Calcium 8.6 mg/dL (8.4-10.2); Carbon Dioxide 25 mmol/L (22-29); Chloride 105 mmol/L (96-108); Creatinine Clr Calc Pharmacy 140.7; Estimated Glomerular Filt Rate > 60; Glucose Random 87 mg/dL (60-115); Sodium 140 mmol/L (135-145)
[2022-07-18 07:27] VITALS: BP 139/84; PULSE 87; RESP 14; TEMP 36.5; O2SAT 98
[2022-07-18] MEDS: vancomycin HCL 1,250 MG in 0.9 % Sodium Chloride 250 ML 166.67 MG IV ×2 (08:01→20:09)
[2022-07-18 08:02] VITALS: BP 125/83; PULSE 90; RESP 16; O2SAT 96
--- NOTE | 2022-07-18 08:08 | HO.PM.IMPN ---
Subjective Subjective Date of Service: 07/18/22 Interval History: requesting for methadone goes to methadone clinic gets 85 mg methadone daily , uses 1 bundle of iv heroin and IV cocaine, denies withdrawal symptoms, is homeless has been ambulating in cold with wet shoes, no fevers, no chills, tolerating diet with no nausea, no vomiting, no abdominal pain. Review of Systems Review of Systems: Yes all other systems are reviewed and are negative Physical Exam Vital Signs: Vital Signs: Last Vital Signs Temp 97.7 F 07/18/22 07:27 Pulse 90 07/18/22 08:02 Resp 16 07/18/22 08:02 BP 125/83 07/18/22 08:02 Pulse Ox 96 07/18/22 08:02 O2 Del Method 07/18/22 08:02 BMI result Body Mass Index 25.1 Const: Other: General resting comfortably in no acute distress awake alert x3 Neck supple, no JVD Regular rate and rhythm, S1-S2 heard Regular breath sounds bilaterally, no wheezing or crackles appreciated Abdomen soft, nontender, no guarding, no rigidity Neuro awake alert x3 speech clear Musculoskeletal:? mild left ankle swelling and erythema, no fluctuation, multiple tip of of toes and base with blistering. Objective Data Active Medications Acetaminophen (Acetaminophen 325 Mg Tablet) 650 mg PO Q6H PRN PRN Reason: Pain, Mild (Pain Scale 1-3) Cefepime HCl 2 gm/ Sodium (Chloride) 50 mls @ 100 mls/hr IV Q8H [facility] Last Infusion: 07/18/22 07:01 Dose: 0 mls/hr Documented By: TERESA Vancomycin HCl 1,250 mg/ (Sodium Chloride) 250 mls @ 166.667 mls/hr IV Q12H [facility] Last Admin: 07/18/22 08:01 Dose: 166.67 mls/hr Documented By: TERESA Melatonin (Melatonin 3 Mg Tablet) 6 mg PO BEDTIME PRN PRN Reason: Insomnia Ondansetron HCl (Ondansetron Hcl 4 Mg/2 Ml Vial) 4 mg IVPUSH Q8H PRN PRN Reason: Nausea and Vomiting Pharmacy Consult (Consult Rx Perform Med Rec) 1 each MISCELLANE ONCE PRN PRN Reason: Consult order Pharmacy Consult (Consult Rx Vancomycin Dosing) 1 each MISCELLANE DAILY PRN PRN Reason: Consult order Sodium Chloride (0.9 % Sodium Chloride Flush 3 Ml Syringe) 3 ml IVFLUSH QSHIFT [facility] Last Admin: 07/18/22 07:01 Dose: Not Given Documented By: TERESA Non-Admin Reason: Med Not Available Labs 07/18/22 05:44 07/18/22 05:44 Labs: Laboratory Results - last 24 hr 07/17/22 07/17/22 07/17/22 18:32 18:32 18:32 MCV 84.3 MCH 29.2 MCHC 34.7 RDW 12.9 Plt Count 215 MPV 10.7 Immature Gran % (Auto) 0.6 H Neut % (Auto) 62.6 Lymph % (Auto) 18.1 L [place] % (Auto) 16.3 H Eos % (Auto) 1.9 Baso % (Auto) 0.5 Lymph # (Auto) 1.5 [place] # (Auto) 1.4 H Eos # (Auto) 0.2 Baso # (Auto) 0.0 Abs Immat Gran (auto) 0.05 H Absolute Neuts (auto) 5.3 Absolute Nucleated RBC 0.000 Nucleated RBC % (auto) 0.0 ESR 19 H Anion Gap 13 Estim Creat Clear Calc 127.6 Estimated GFR > 60 Random Glucose 108 Lactic Acid Calcium 9.0 Total Bilirubin 0.8 AST 96 H ALT 61 H Alkaline Phosphatase 108 C-Reactive Protein 14.86 H Total Protein 7.2 Albumin 3.9 COVID-19 ([facility]) COVID-19 Clin Com 07/17/22 07/17/22 07/18/22 18:32 19:04 05:44 MCV 86.6 MCH 29.4 MCHC 33.9 RDW 13.0 Plt Count 201 MPV 11.1 Immature Gran % (Auto) 0.6 H Neut % (Auto) 57.6 Lymph % (Auto) 23.1 [place] % (Auto) 13.6 H Eos % (Auto) 4.3 H Baso % (Auto) 0.8 Lymph # (Auto) 1.5 [place] # (Auto) 0.9 Eos # (Auto) 0.3 Baso # (Auto) 0.1 Abs Immat Gran (auto) 0.04 H Absolute Neuts (auto) 3.7 Absolute Nucleated RBC 0.000 Nucleated RBC % (auto) 0.0 ESR Anion Gap Estim Creat Clear Calc Estimated GFR Random Glucose Lactic Acid 1.1 Calcium Total Bilirubin AST ALT Alkaline Phosphatase C-Reactive Protein Total Protein Albumin COVID-19 ([facility]) Negative COVID-19 Clin Com See Note 07/18/22 05:44 MCV MCH MCHC RDW Plt Count MPV Immature Gran % (Auto) Neut % (Auto) Lymph % (Auto) [place] % (Auto) Eos % (Auto) Baso % (Auto) Lymph # (Auto) [place] # (Auto) Eos # (Auto) Baso # (Auto) Abs Immat Gran (auto) Absolute Neuts (auto) Absolute Nucleated RBC Nucleated RBC % (auto) ESR Anion Gap 13 Estim Creat Clear Calc 140.7 Estimated GFR > 60 Random Glucose 87 Lactic Acid Calcium 8.6 Total Bilirubin AST ALT Alkaline Phosphatase C-Reactive Protein Total Protein Albumin COVID-19 ([facility]) COVID-19 Clin Com Assessment and Plan (1) Substance use disorder: Status: Acute (2) Trench feet: Status: Acute (3) Cellulitis: Status: Acute Plan 37-year-old with pertinent history of IV substance use disorder presents to the emergency department for evaluation of left ankle pain. #.? Left ankle cellulitis:? Continue empiric IV cefepime and vancomycin day 1 for extensive cellulitis.? left ankle x-ray showed diffuse soft tissue swelling and correlation for infection and septic joint, no acute osseous abnormality, no evidence of osteo. Orthopedic surgery consulted from the ER for possible joint aspiration to rule out septic joint.? normal WBC and lactic acid Blood cultures pending #.? Substance use disorder:? UDS pending.? will verify dose of methadone and resume. #.? Acute toxic encephalopathy resolved # Hypokalemia will replete and follow labs #.? Homelessness: [employer] consult. DVT prophylaxis:? lovenox Full code patient will need continued inpatient hospitalization for IV antibiotics and further evaluation by surgery. to Time Spent With Patient Time: Total time managing care of this patient today ____ minutes. Quality Stroke Does the patient have a stroke diagnosis?: No VTE Prior VTE?: No VTE Risk Level:: Medical - moderate - high VTE Device Contraindication: Treatment Not Indicated VTE Drug Contraindication: Treatment Not Indicated
--- NOTE | 2022-07-18 08:53 | MHC.CM.PN ---
CM MET WITH PT AT BEDSIDE, PT LETHARGIC AND FALLING ASLEEP DURING ASSESSMENT. PT IS HOMELESS, WILL THINK ABOUT A LONG-TERM ON DC. PT INDEPENDENT AT BASELINE. NO HCP, DECLINES. + COVID VAX X3. PCP AT [facility]. DP: PT WILL CONSIDER A LONG-TERM ON DC. MAY NEED A LYFT. CM WILL REAPPROACH WHEN LESS LETHARGIC. CM WILL CONTINUE TO FOLLOW
[2022-07-18 09:47] VITALS: BMI 28.5
--- NOTE | 2022-07-18 10:17 | MHC.RECOVRN ---
Attempted to meet with pt in [phone] after 20 mg methadone given yesterday evening for withdrawal symptoms including restlessness and diaphoresis. Pt laying in bed, asleep, very briefly wakes to loud voice, unable to stay awake to have conversation. T/w available as needed.
--- NOTE | 2022-07-18 11:17 | HE.PHANOTE ---
Addendum entered by Geneva Kennedy RPh 07/18/22 11:18: Patient name at the clinic is Jean Carlos Gonsales Doe Original Note: Methadone Verification I have verified the methadone with EUNICE ruiz. Patient last received methadone 85 mg on 07/17/22 @ 0946.
[2022-07-18 12:00] VITALS: BP 135/88; PULSE 97; RESP 18; TEMP 36.7; O2SAT 98
--- NOTE | 2022-07-18 14:36 | PM.CNGS ---
History of Present Illness Consult details Consult date: 07/18/22 Requesting physician: Erick Nina Narrative: 37 year old male came to ER with pain in left foot ankle area and noted to have wounds. pt with substance abuse issues. ?septic arthritis but seen by ortho and determined not to be the case. pt with cellulitis and blistering of left plantar and dorsal foot. PMFSH Past Medical History Medical History Substance use disorder Social History Social History Housing: Homeless Do you presently have visiting nurse or other home services: No Patient Tobacco Use Status: Never used Tobacco Tobacco use type: Cigarette Cigarette Packs Per Day: 1 Cigarettes Per Day: 20.0 Substance Use Type: Crack/Cocaine and Heroin service: No Current occupational status: unemployed Meds Allergies Allergy/AdvReac Type Severity Reaction Status Date / Time No Known Allergies Allergy Verified 02/04/22 13:56 Active Medications: Current Medications Acetaminophen (Acetaminophen 325 Mg Tablet) 650 mg PO Q6H PRN PRN Reason: Pain, Mild (Pain Scale 1-3) Cefepime HCl 2 gm/ Sodium (Chloride) 50 mls @ 100 mls/hr IV Q8H [facility] Last Infusion: 07/18/22 14:11 Dose: Infused Vancomycin HCl 1,250 mg/ (Sodium Chloride) 250 mls @ 166.667 mls/hr IV Q12H [facility] Last Infusion: 07/18/22 10:51 Dose: Infused Melatonin (Melatonin 3 Mg Tablet) 6 mg PO BEDTIME PRN PRN Reason: Insomnia Ondansetron HCl (Ondansetron Hcl 4 Mg/2 Ml Vial) 4 mg IVPUSH Q8H PRN PRN Reason: Nausea and Vomiting Pharmacy Consult (Consult Rx Perform Med Rec) 1 each MISCELLANE ONCE PRN PRN Reason: Consult order Pharmacy Consult (Consult Rx Vancomycin Dosing) 1 each MISCELLANE DAILY PRN PRN Reason: Consult order Sodium Chloride (0.9 % Sodium Chloride Flush 3 Ml Syringe) 3 ml IVFLUSH QSHIFT [facility] Last Admin: 07/18/22 07:01 Dose: Not Given Home Medications Medication Instructions Recorded Confirmed Last Taken Type methadone 10 mg/5 mL oral solution 85 mg PO DAILY 03/09/0607/18/22 07/17/22 09:46 History Physical Exam Vital Signs: Vital Signs: Last Vital Signs Temp 98.0 F 07/18/22 12:00 Pulse 97 07/18/22 12:00 Resp 18 07/18/22 12:00 BP 135/88 07/18/22 12:00 Pulse Ox 98 07/18/22 12:00 O2 Del Method 07/18/22 12:00 BMI result Body Mass Index 28.5 Const: General: cooperative, comfortable and no acute distress Skin: Other: left foot - with some dried blistered skin area on plantar base of toes looks clean , great toe looks ok on plantar aspect probably will have some sloughing of skin but no areas of abscess needing debridement. the streak of redness going up the foot is improved right foot looks ok strong palpable dp pulses bilaterally Results Labs 07/18/22 05:44 07/18/22 05:44 Labs: Abnormal lab results 07/17/22 07/17/22 07/17/22 Range/Units 18:32 18:32 18:32 RBC 4.14 L (4.60-5.80) X10*6/uL Hgb 12.1 L (14.0-18.0) g/dl Hct 34.9 L (42.0-52.0) % Immature Gran % (Auto) 0.6 H (0.0-0.4) % Lymph % (Auto) 18.1 L (20-40) % [place] % (Auto) 16.3 H (2-11) % Eos % (Auto) (0-4) % [place] # (Auto) 1.4 H (0.1-1.2) X10*3/uL Abs Immat Gran (auto) 0.05 H (0.00-0.03) X10*3/uL ESR 19 H (0-15) MM/HR Potassium (3.3-5.1) mmol/L AST 96 H (5-37) U/L ALT 61 H (0-40) U/L C-Reactive Protein 14.86 H (< or = 0.50) mg/dL 07/18/22 07/18/22 Range/Units 05:44 05:44 RBC 3.95 L (4.60-5.80) X10*6/uL Hgb 11.6 L (14.0-18.0) g/dl Hct 34.2 L (42.0-52.0) % Immature Gran % (Auto) 0.6 H (0.0-0.4) % Lymph % (Auto) (20-40) % [place] % (Auto) 13.6 H (2-11) % Eos % (Auto) 4.3 H (0-4) % [place] # (Auto) (0.1-1.2) X10*3/uL Abs Immat Gran (auto) 0.04 H (0.00-0.03) X10*3/uL ESR (0-15) MM/HR Potassium 3.0 L (3.3-5.1) mmol/L AST (5-37) U/L ALT (0-40) U/L C-Reactive Protein (< or = 0.50) mg/dL Short CBC 07/17/22 07/18/22 Range/Units 18:32 05:44 WBC 8.5 6.5 (4.8-10.8) X10*3/uL Hgb 12.1 L 11.6 L (14.0-18.0) g/dl Hct 34.9 L 34.2 L (42.0-52.0) % Plt Count 215 201 (160-400) X10*3/uL BMP 07/17/22 07/18/22 18:32 05:44 Sodium 138 140 Potassium 3.5 3.0 L Chloride 100 105 Carbon Dioxide 29 25 BUN 12 9 Creatinine 0.86 0.78 Calcium 9.0 8.6 Liver Function 07/17/22 Range/Units 18:32 Total Bilirubin 0.8 (0.0-1.0) mg/dL AST 96 H (5-37) U/L ALT 61 H (0-40) U/L Alkaline Phosphatase 108 (39-117) U/L Albumin 3.9 (3.5-5.0) g/dL All other labs normal. Imaging Additional studies: foot xray reviewed Assessment and Plan (1) Cellulitis: Status: Acute Plan 37 year old male with substance abuse issues, not diabetic with infection/cellulitis of left foot>right foot- doing better . ortho says no septic joint and at this pt with iv antibx cellulitis and infection improved. no need for any surgical debridement at this time. Time Spent With Patient Time: Total time managing care of this patient today ____ minutes. Procedures Date of Service Date of Service: 07/18/22
[2022-07-18] MEDS: methADONE HCl 20 MG/2 ML ORAL.CONC 85 MG PO (15:17)
[2022-07-18] MEDS: Potassium Chloride ER 20 MEQ TAB.ER.PRT 40 MEQ PO (15:26)
[2022-07-18] MEDS: 0.9 % Sodium Chloride Flush 3 ML SYRINGE IVFLUSH ×2 (15:27→20:16)
[2022-07-18 16:00] VITALS: BP 119/74; PULSE 98; RESP 19; TEMP 36.6; O2SAT 97
[2022-07-18 20:00] VITALS: BP 148/80; PULSE 96; RESP 19; TEMP 36.7; O2SAT 96
[2022-07-19] VITALS (7 sets, daily range): BP systolic 128–146; BP diastolic 67–80; PULSE 78–96; RESP 14–20; TEMP 36.3–37.2; O2SAT 96–98
[2022-07-19] MEDS: cefEPime HCl 2 GM in 0.9 % Sodium Chloride 50 ML IV ×3 (04:57→20:53)
[2022-07-19 06:32] LABS: Anion Gap 20 (12-20); Blood Urea Nitrogen 10 mg/dL (9-16); Calcium 8.3 mg/dL (8.4-10.2); Carbon Dioxide 19 mmol/L (22-29); Chloride 106 mmol/L (96-108); Estimated Glomerular Filt Rate > 60; Glucose Random 84 mg/dL (60-115); Potassium 3.5 mmol/L (3.3-5.1); Sodium 141 mmol/L (135-145)
[2022-07-19] MEDS: vancomycin HCL 1,000 MG, vancomycin HCL 750 MG in 0.9 % Sodium Chloride 500 ML 267.5 MG IV ×2 (09:14→22:01)
[2022-07-19] MEDS: methADONE HCl 20 MG/2 ML ORAL.CONC 85 MG PO (09:14)
[2022-07-19] MEDS: 0.9 % Sodium Chloride Flush 3 ML SYRINGE IVFLUSH ×2 (09:15→20:54)
--- NOTE | 2022-07-19 13:51 | MHC.RECOVRN ---
Chart reviewed. Attempted to meet with pt to discuss substance use and recovery supports. Pt asleep, does not wake to voice. Folder of recovery resources left at bedside along with t/w contact information. T/w available as needed. Lesly Cuevas APRN, aware.
--- NOTE | 2022-07-19 14:01 | P.PNGS_ITS ---
Subjective Subjective Date of Service: 07/19/22 Interval history: Patient denies any pain no problems. His feet feel fine Physical Exam 2 Vital Signs: Vital Signs: Last Vital Signs Temp 97.4 F 07/19/22 11:59 Pulse 78 07/19/22 11:59 Resp 18 07/19/22 11:59 BP 131/70 07/19/22 11:59 Pulse Ox 98 07/19/22 11:59 O2 Del Method 07/19/22 03:19 BMI result Body Mass Index 28.5 Skin: Other: The redness on the dorsal and plantar aspect of his feet are all gone. The open blistered broad area is healing quite nicely. No evidence of any open wounds of concern Objective Data Active Medications Acetaminophen (Acetaminophen 325 Mg Tablet) 650 mg PO Q6H PRN PRN Reason: Pain, Mild (Pain Scale 1-3) Vancomycin HCl 1,000 mg/Vancomycin HCl 750 mg/ Sodium Chloride 535 mls @ 267.5 mls/hr IV Q12H [facility] Last Infusion: 07/19/22 12:13 Dose: 0 mls/hr Documented By: CYNDIE Cefepime HCl 2 gm/ Sodium (Chloride) 50 mls @ 100 mls/hr IV Q8H [facility] Last Infusion: 07/19/22 13:43 Dose: 0 mls/hr Documented By: CYNDIE Melatonin (Melatonin 3 Mg Tablet) 6 mg PO BEDTIME PRN PRN Reason: Insomnia Methadone HCl (Methadone Hcl 20 Mg/2 Ml Oral.Conc) 85 mg PO DAILY [facility] Last Admin: 07/19/22 09:14 Dose: 85 mg Documented By: CYNDIE Ondansetron HCl (Ondansetron Hcl 4 Mg/2 Ml Vial) 4 mg IVPUSH Q8H PRN PRN Reason: Nausea and Vomiting Pharmacy Consult (Consult Rx Perform Med Rec) 1 each MISCELLANE ONCE PRN PRN Reason: Consult order Pharmacy Consult (Consult Rx Vancomycin Dosing) 1 each MISCELLANE DAILY PRN PRN Reason: Consult order Sodium Chloride (0.9 % Sodium Chloride Flush 3 Ml Syringe) 3 ml IVFLUSH QSHIFT [facility] Last Admin: 07/19/22 09:15 Dose: 3 ml Documented By: CYNDIE Labs 07/18/22 05:44 07/19/22 05:57 Labs: Laboratory Results - last 24 hr 07/19/22 07/19/22 05:57 05:57 Anion Gap 20 Estim Creat Clear Calc 156.0 Estimated GFR > 60 Random Glucose 84 Calcium 8.3 L Vancomycin Trough 7.0 L Microbiology Microbiology Results: Microbiology 07/17/22 18:34 Blood Culture - Final Blood - Venous Coag negative Staphylococcus 07/17/22 18:32 Blood Culture - Preliminary Blood - Venous No growth after 24 hours. Procedures Date of Service Date of Service: 07/19/22 Progress Note: A&P Assessment and plan (1) Cellulitis: Status: Acute Plan 37-year-old male with foot infection and cellulitis much improved. No open wounds of concern. Continue with IV antibiotics as per medical team no need for further surgical intervention. Time Spent With Patient Time: Total time managing care of this patient today ____ minutes. Quality Stroke Does the patient have a stroke diagnosis?: No VTE Prior VTE?: No VTE Risk Level:: Medical - moderate - high VTE Device Contraindication: Treatment Not Indicated VTE Drug Contraindication: Treatment Not Indicated
--- NOTE | 2022-07-19 14:28 | P.PNIM_ITS ---
Subjective Subjective Date of Service: 07/19/22 Interval History: left foot pain is better, receiving methadone home dose, denies fever, no chills, tolerating diet, no nausea, no abdominal pain, no diarrhea tolerating diet, no acute issues overnight. Review of Systems Review of Systems: Yes all other systems are reviewed and are negative Physical Exam Vital Signs: Vital Signs: Last Vital Signs Temp 97.4 F 07/19/22 11:59 Pulse 78 07/19/22 11:59 Resp 18 07/19/22 11:59 BP 131/70 07/19/22 11:59 Pulse Ox 98 07/19/22 11:59 O2 Del Method 07/19/22 03:19 BMI result Body Mass Index 28.5 Const: Other: General resting co mfortably in no ac [place] distress awake alert x3 Neck sup ple, no JVD Regula r rate and rhythm, S1-S2 heard Regul ar breath sounds b ilaterally, no whe ezing or crackles Abdomen soft, non tender, no guardi ng, no rigidity Ne uro awake alert x3 speech clear Musc uloskeletal:? mild left ankle swelli ng and erythema,mu ltiple?tip of of t oes and base with blistering, no jaz inage, no open wou nds. Objective Data Active Medications Acetaminophen (Acetaminophen 325 Mg Tablet) 650 mg PO Q6H PRN PRN Reason: Pain, Mild (Pain Scale 1-3) Vancomycin HCl 1,000 mg/Vancomycin HCl 750 mg/ Sodium Chloride 535 mls @ 267.5 mls/hr IV Q12H [facility] Last Infusion: 07/19/22 12:13 Dose: 0 mls/hr Documented By: CYNDIE Cefepime HCl 2 gm/ Sodium (Chloride) 50 mls @ 100 mls/hr IV Q8H [facility] Last Infusion: 07/19/22 13:43 Dose: 0 mls/hr Documented By: CYNDIE Melatonin (Melatonin 3 Mg Tablet) 6 mg PO BEDTIME PRN PRN Reason: Insomnia Methadone HCl (Methadone Hcl 20 Mg/2 Ml Oral.Conc) 85 mg PO DAILY [facility] Last Admin: 07/19/22 09:14 Dose: 85 mg Documented By: CYNDIE Ondansetron HCl (Ondansetron Hcl 4 Mg/2 Ml Vial) 4 mg IVPUSH Q8H PRN PRN Reason: Nausea and Vomiting Pharmacy Consult (Consult Rx Perform Med Rec) 1 each MISCELLANE ONCE PRN PRN Reason: Consult order Pharmacy Consult (Consult Rx Vancomycin Dosing) 1 each MISCELLANE DAILY PRN PRN Reason: Consult order Sodium Chloride (0.9 % Sodium Chloride Flush 3 Ml Syringe) 3 ml IVFLUSH QSHIFT [facility] Last Admin: 07/19/22 09:15 Dose: 3 ml Documented By: CYNDIE Labs 07/18/22 05:44 07/19/22 05:57 Labs: Laboratory Results - last 24 hr 07/19/22 07/19/22 05:57 05:57 Anion Gap 20 Estim Creat Clear Calc 156.0 Estimated GFR > 60 Random Glucose 84 Calcium 8.3 L Vancomycin Trough 7.0 L Microbiology Microbiology Results: Microbiology 07/17/22 18:34 Blood Culture - Final Blood - Venous Coag negative Staphylococcus 07/17/22 18:32 Blood Culture - Preliminary Blood - Venous No growth after 24 hours. Assessment and Plan (1) Substance use disorder: Status: Acute (2) Trench feet: Status: Acute (3) Cellulitis: Status: Acute Plan 37-year-old with pertinent history of IV substance use disorder presents to the emergency department for evaluation of left ankle pain. #.? Left ankle cellulitis:? Continue empiric IV cefepime and vancomycin day 2 for cellulitis.? left ankle x-ray showed diffuse soft tissue swelling and correlation for infection and septic joint, seen by Orthopedic surgery no septic joint noted normal WBC and lactic acid Blood cultures 1/2 bottles positive for coagulase negative Staph encourage ambulation #.? Substance use disorder:? continue methadone , history of active iv heroin and cocaine use, recovery team attempted to meet with patient twice but patient was asleep question patient avoiding to meet with Addiction Team #.? Acute toxic encephalopathy resolved # Hypokalemia repleted and improved #.? Homelessness: [employer] consult. DVT prophylaxis:? lovenox Full code patient will need continued inpatient hospitalization for IV antibiotics and healing of toes Time Spent With Patient Time: Total time managing care of this patient today ____ minutes. Quality Stroke Does the patient have a stroke diagnosis?: No VTE Prior VTE?: No VTE Risk Level:: Medical - moderate - high VTE Device Contraindication: Treatment Not Indicated VTE Drug Contraindication: Treatment Not Indicated
[2022-07-20 04:00] VITALS: BP 129/77; PULSE 82; RESP 16; TEMP 36.7; O2SAT 97
[2022-07-20] MEDS: cefEPime HCl 2 GM in 0.9 % Sodium Chloride 50 ML IV ×2 (06:13→13:22)
[2022-07-20 06:26] LABS: Vancomycin Trough 12.5 mcg/mL (10.0-20.0)
[2022-07-20 07:09] VITALS: BP 156/85; PULSE 119; RESP 20; TEMP 37; O2SAT 97
--- NOTE | 2022-07-20 07:21 | HE.PHANOTE ---
Vancomycin Dosing Addendum Patient's Scr lab is not back yet for this morning, will continue dose of 1250 mg Q12H at this time as dose is due now. Patients level came back at 12.5 mg/L which is therapeutic for patients indication. Will obtain random level on 07/21 @0600 to ensure safety vs efficacy.
[2022-07-20 07:37] LABS: Creatinine Clr Calc Pharmacy 141.3; Estimated Glomerular Filt Rate > 60
[2022-07-20] MEDS: methADONE HCl 20 MG/2 ML ORAL.CONC 85 MG PO (07:58)
[2022-07-20] MEDS: 0.9 % Sodium Chloride Flush 3 ML SYRINGE IVFLUSH ×3 (07:59→22:27)
[2022-07-20] MEDS: vancomycin HCL 1,000 MG, vancomycin HCL 750 MG in 0.9 % Sodium Chloride 500 ML 267.5 MG IV (08:03)
--- NOTE | 2022-07-20 09:52 | MHC.RECOVRN ---
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 Original Note: Met with pt in 443 to discuss substance use and desire for treatment. Pt reports having been in recovery x 8 months with a recurrence one week ago. Pt reports using heroin, 1-2 bundles daily, as well as cocaine, IV, x 1 week. Pt was recently in treatment at [facility]. Pt would like CSS upon dc from [facility]. Pt is currently on methadone, 85 mg daily, x 1 year. Pt denies currently withdrawal symptoms. Pt willing to have referrals placed across [place]. Discussed with Lesly Cuevas APRN.
[2022-07-20 11:17] VITALS: BP 136/77; PULSE 84; RESP 18; TEMP 36.8; O2SAT 97
--- NOTE | 2022-07-20 13:06 | MHC.RECOVRN ---
Spoke with Karol Beth from [facility]. Pt currently being reviewed for [facility].
[2022-07-20 14:45] VITALS: BP 137/75; PULSE 85; RESP 18; TEMP 37.1; O2SAT 97
--- NOTE | 2022-07-20 15:07 | MHC.CM.PN ---
per rounds pt will be ready for dc after he is seen by recoevery team recovery team arranging dc for pt thru [facility]
--- NOTE | 2022-07-20 15:20 | P.PNIM_ITS ---
Subjective Subjective Date of Service: 07/20/22 Interval History: feeling better less foot discomfort able to ambulate to bathroom denies withdrawal symptoms, meeting with recovery team at present , no other overnight events, no fevers, no chills, no nausea, no vomiting, no abdominal pain. Review of Systems Review of Systems: Yes all other systems are reviewed and are negative Physical Exam Vital Signs: Vital Signs: Last Vital Signs Temp 98.7 F 07/20/22 14:45 Pulse 85 07/20/22 14:45 Resp 18 07/20/22 14:45 BP 137/75 07/20/22 14:45 Pulse Ox 97 07/20/22 14:45 O2 Del Method 07/20/22 14:45 BMI result Body Mass Index 28.5 Const: Other: General resting co mfortably in no ac eduardo distress awake alert x3 Neck sup ple, no JVD Regula r rate and rhythm, S1-S2 Regular br eath sounds bilate rally, no wheezing or crackles appre ciated Abdomen sof t, nontender, no g uarding, no rigidi ty Neuro awake britta rt x3 speech clear Musculoskeletal:? left ankle swellin g and erythema Im proved, no fluctua tion, multiple? ti p of of toes and b ase with dry scabs , blisters, no jaz inage. Objective Data Active Medications Acetaminophen (Acetaminophen 325 Mg Tablet) 650 mg PO Q6H PRN PRN Reason: Pain, Mild (Pain Scale 1-3) Amoxicillin/Clavulanate Potassium (Amoxicillin/Potassium Clav 875 Mg Tablet) 875 mg PO Q12H [facility] Melatonin (Melatonin 3 Mg Tablet) 6 mg PO BEDTIME PRN PRN Reason: Insomnia Methadone HCl (Methadone Hcl 20 Mg/2 Ml Oral.Conc) 85 mg PO DAILY [facility] Last Admin: 07/20/22 07:58 Dose: 85 mg Documented By: RACHEL Ondansetron HCl (Ondansetron Hcl 4 Mg/2 Ml Vial) 4 mg IVPUSH Q8H PRN PRN Reason: Nausea and Vomiting Pharmacy Consult (Consult Rx Perform Med Rec) 1 each MISCELLANE ONCE PRN PRN Reason: Consult order Silver Sulfadiazine (Silver Sulfadiazine 1 % Cream 20 Gm Tube) 1 appl TOPICAL BID [facility] Sodium Chloride (0.9 % Sodium Chloride Flush 3 Ml Syringe) 3 ml IVFLUSH QSHIFT [facility] Last Admin: 07/20/22 07:59 Dose: 3 ml Documented By: LAURENENOAL Labs 07/18/22 05:44 07/20/22 05:38 Labs: Laboratory Results - last 24 hr 07/20/22 07/20/22 05:38 05:38 Estim Creat Clear Calc 141.3 Estimated GFR > 60 Vancomycin Trough 12.5 Microbiology Microbiology Results: Microbiology 07/17/22 18:32 Blood Culture - Preliminary Blood - Venous No growth after 48 hours. 07/17/22 18:34 Blood Culture - Final Blood - Venous Coag negative Staphylococcus Assessment and Plan (1) Substance use disorder: Status: Acute (2) Trench feet: Status: Acute (3) Cellulitis: Status: Acute Plan 37-year-old with pertinent history of IV substance use disorder presents to the emergency department for evaluation of left ankle pain. #.? Left ankle cellulitis and multiple toe blisters. improved will DC IV cefepime and vancomycin and place on by mouth Augmentin for 5 more days left ankle x-ray showed diffuse soft tissue swelling and correlation for infection and septic joint, seen by Orthopedic surgery no septic joint noted normal WBC and lactic acid Blood cultures 1/2 bottles positive for coagulase negative Staph bilateral foot blisters are healing well, will apply Silvadene, encourage ambulation. #.? Substance use disorder:? continue methadone , history of active iv heroin and cocaine use, recovery team met with patient and arranging for inpatient treatment. #.? Acute toxic encephalopathy resolved # Hypokalemia repleted and improved DVT prophylaxis:? lovenox Full code patient will need continued inpatient hospitalization for close monitoring of left ankle cellulitis and Time Spent With Patient Time: Total time managing care of this patient today ____ minutes. Quality Stroke Does the patient have a stroke diagnosis?: No VTE Prior VTE?: No VTE Risk Level:: Medical - moderate - high VTE Device Contraindication: Treatment Not Indicated VTE Drug Contraindication: Treatment Not Indicated
[2022-07-20] MEDS: Amoxicillin/Potassium Clav 875 MG TABLET PO (15:50)
--- NOTE | 2022-07-20 15:59 | MHC.RECOVRN ---
Pt accepted for admission to [facility] for 07/21/22. Currently completing phone intake with Carlene.
[2022-07-20 19:33] VITALS: BP 156/79; PULSE 82; RESP 18; TEMP 37; O2SAT 98
[2022-07-20] MEDS: Melatonin 3 MG TABLET 6 MG PO (20:28)
[2022-07-20] MEDS: Silver Sulfadiazine 1 % Cream 20 GM TUBE 1 APPL TOPICAL (20:28)
[2022-07-20 23:13] VITALS: BP 130/83; PULSE 82; RESP 16; TEMP 37.1; O2SAT 97
[2022-07-21] MEDS: Amoxicillin/Potassium Clav 875 MG TABLET PO (01:37)
[2022-07-21 03:35] VITALS: BP 135/79; PULSE 77; RESP 16; TEMP 36.5; O2SAT 98
[2022-07-21 07:18] VITALS: BP 143/79; PULSE 80; RESP 16; TEMP 36.7; O2SAT 97
--- NOTE | 2022-07-21 08:51 | MHC.RECOVRN ---
Patient has 11am Admission at the [facility], t/w will coordinate transportation at 10am
[2022-07-21] MEDS: methADONE HCl 20 MG/2 ML ORAL.CONC 85 MG PO (08:52)
[2022-07-21] MEDS: 0.9 % Sodium Chloride Flush 3 ML SYRINGE IVFLUSH (08:53)
[2022-07-21] MEDS: Silver Sulfadiazine 1 % Cream 20 GM TUBE 1 APPL TOPICAL (08:55)
--- NOTE | 2022-07-21 09:13 | P.DS_ITS ---
DS: Providers Provider Date of Service: 07/21/22 Date of admission: 07/17/22 20:20 Primary care physician: Unknown Physician Consults: 07/17/22 20:55 Consult to Orthopedics Routine Consulting Provider: Angel Kumar Reason for consultation: ?septic arthritis 07/18/22 14:41 Consult to General Surgery Routine Consulting Provider: Traci Deng Reason for consultation: foot infection Has provider been notified: No 07/18/22 15:12 Addiction Medicine Routine Consulting Provider: Addiction Covering Reason for consultation: iv drug abuse Has provider been notified: No DS: Diagnosis Discharge Diagnosis (1) Substance use disorder: Status: Acute (2) Trench feet: Status: Acute (3) Cellulitis: Status: Acute DS: Summary Hospital Course Hospital Course: history of presenting illness: Date of Service: 07/17/22 Chief Complaint: Foot infection This is a 37-year-old with pertinent history of IV substance use disorder presents to the emergency department for evaluation of left ankle pain.? Patient received Ativan in the ER and at the time of my evaluation patient is only responding to painful stimulus.? Unable to obtain any history from the patient.? History obtained from chart review and ER provider.? The left ankle pain apparently started 3 days ago.? Patient has been homeless and walking in wet shoes and socks.? Unable to obtain review of systems.? In the emergency department, imaging with diffuse soft tissue swelling.? Orthopedic surgery and General surgery consult from the ER. hospital course: 37-year-old with pertinent history of IV substance use disorder presents to the emergency department for evaluation of left ankle pain, and diagnosed with acute toxic metabolic encephalopathy likely due to illicit drugs and infection Left ankle cellulitis and multiple toe? blisters, patient treated with IV cefepime and vancomycin, left ankle x-ray showed diffuse soft tissue swelling, patient seen by Orthopedic surgery, there was no concern for septic joint, patient responded well to above treatment , confusion resolved,labs showed normal WBC and lactic acid blood cultures were unremarkable patient was evaluated by General surgery in regard to bilateral foot blisters, no debridement was needed,, Silvadene cream was applied recommend to keep feet warm and dry. ? ? ? in regard to Substance use disorder, will continue methadone patient was seen by recovery team and arrangement is being made for transfer to [facility] Hypokalemia? repleted and improved Time Spent with Patient Time attestation: Total time managing care of this patient today ____ minutes. Discharge coordination time: Greater than 30 minutes Quality: Safe Use of Opioids Does Pt have an Active Cancer Diagnosis on the Problem List?: No Quality: Stroke Does the patient have a stroke diagnosis?: No Physical Exam Vital Signs: Vital Signs: Last Vital Signs Temp 98.1 F 07/21/22 07:18 Pulse 80 07/21/22 07:18 Resp 16 07/21/22 07:18 BP 143/79 H 07/21/22 07:18 Pulse Ox 97 07/21/22 07:18 O2 Del Method 07/21/22 07:18 BMI result Body Mass Index 28.5 Const: Other: General resting co mfortably in no ac eduardo distress awake alert x3 Neck sup ple, no JVD Regula r rate and rhythm, S1-S2 heard Regul ar breath sounds b ilaterally, no whe ezing or crackles appreciated Abdome n soft, non tender , no guarding, no rigidity Neuro chetan ke alert x3 speech clear Musculoskel etal:? left ankle swelling and eryth ana rosa resolved, mult iple? tip of of to es and base with d ry scabs . DS: Data Data Completed and Pending Labs on day of discharge: Preliminary micro results at discharge 07/17/22 18:32 Blood Culture - Preliminary Blood - Venous No growth after 48 hours. Discharge Plan Discharge Anticipated Discharge Date/Time: 07/21/22 09:09 Patient Disposition: Xfer to Respite Facility Discharge Diagnosis: Left ankle cellulitis substance use disorder acute toxic metabolic encephalopathy bilateral foot blisters Referrals: Physician,Unknown J [Primary Care Provider] - 1 Week Discharge Medications: New amoxicillin-pot clavulanate 875-125 mg Tablet 875 mg PO Q12H Qty: 10 0RF silver sulfadiazine 1 % Cream 1 appl topical BID Qty: 1 0RF Continued methadone 10 mg/5 mL Solution 85 mg PO DAILY Discharge Orders: Discharge Order (Routine); Ordered 07/21/22 Ordered By: Erick Nina Diet: Advance to usual diet Activity on Discharge: As tolerated Stand Alone Forms: Patient Portal Discharge page Print Language: Palestinian Care Plan Goals: left ankle cellulitis improved take by mouth Augmentin as prescribed, strongly advised to abstain from illicit drug use keep feet dry and warm Health Concerns: active substance abuse Plan of Treatment: follow-up with primary care physician, call for appointment Assessment: as above
--- NOTE | 2022-07-21 09:21 | MHC.CM.PN ---
DP: PT HAS BEEN MEDICALLY CLEARED FOR DC TO [facility] FOR RESPITE. RN AWARE. [facility] IS SETTING UP TRANSPORT.
== END 2022-07-21 10:26 | DRG 383 ==
LOC: HO.ED 20:23 → HO.EDOVER 20:39 → HO.IMC 07-18 06:20
PROVIDERS: Physician Assistant Medical; Admitting Provider Student in an Organized Health Care Education/Training Program; Emergency Provider Emergency Medicine; Visit Provider Hospitalist
DX: L03.116 Cellulitis of left lower limb (principal); G92.8 Other toxic encephalopathy; T69.022A Immersion foot, left foot, initial encounter; F11.20 Opioid dependence, uncomplicated; E87.6 Hypokalemia; T69.021A Immersion foot, right foot, initial encounter; X31.XXXA Exposure to excessive natural cold, initial encounter; F17.210 Nicotine dependence, cigarettes, uncomplicated; Z71.6 Tobacco abuse counseling; Z20.822 Contact with and (suspected) exposure to COVID-19; Z59.02 Unsheltered homelessness
CPT/HCPCS: 36415; 73610; 80048; 80053; 80202; 82565; 83605; 85025; 85652; 86140; 87040; 87147; 87205; 87635; 99285; J0692; J2060; J2543; J3370; J3371